=== PATIENT | male | born 1985 | race African-American/Black ===

== ENCOUNTER 2019-11-29 08:35 | Emergency (ER) | payer OTHER ==
[~2019-11-29] VITALS: Ht 182.9 cm; Wt 79.4 kg
[2019-11-29] MEDS ORDERED: FLEXERIL PO (09:47)
[2019-11-29] MEDS ORDERED: LIDODERM1 EACH TOP (09:47)
[2019-11-29] MEDS ORDERED: IBUPROFEN 800800 M1 PO (09:47)
[2019-11-29 09:54] VITALS: BP 141/86
== END 2019-11-29 09:54 | disposition home or self-care (01) ==
LOC: M.ERS 08:35
DX: S46.812A Strain of other muscles, fascia and tendons at shoulder and upper arm level, left arm, initial encounter (principal); W18.39XA Other fall on same level, initial encounter; Y93.6A Activity, physical games generally associated with school recess, summer camp and children; Y92.89 Other specified places as the place of occurrence of the external cause; Y99.8 Other external cause status

== ENCOUNTER 2020-12-30 14:31 | Emergency (ER) | payer OTHER ==
[~2020-12-30] VITALS: Ht 182.9 cm; Wt 84.8 kg
[~2020-12-30 14:31] MED LIST: FLEXERIL PO; IBUPROFEN 800800 M1 PO; LIDODERM1 EACH TOP
[2020-12-30] MEDS ORDERED: FLEXERIL PO (16:01)
[2020-12-30] MEDS ORDERED: LIDODERM1 EACH TOP (16:01)
[2020-12-30 16:05] VITALS: BP 112/87
== END 2020-12-30 16:09 | disposition home or self-care (01) ==
LOC: M.ERS 14:31
DX: M25.512 Pain in left shoulder (principal); M79.642 Pain in left hand; Z79.899 Other long term (current) drug therapy; X50.9XXA Other and unspecified overexertion or strenuous movements or postures, initial encounter; Y93.89 Activity, other specified; Y92.89 Other specified places as the place of occurrence of the external cause; Y99.0 Civilian activity done for income or pay

== ENCOUNTER 2021-02-19 00:26 | Emergency (ER) | payer OTHER ==
[~2021-02-19] VITALS: Ht 182.9 cm; Wt 81.7 kg
[2021-02-19 01:35] LABS: INFLUENZA A ANTIGEN Negative (Negative); INFLUENZA B ANTIGEN Negative (Negative)
[2021-02-19 01:39] LABS: ABSOLUTE BASOPHILS 0.1 thou/uL (0.0-0.2); ABSOLUTE EOSINOPHILS 0.2 thou/uL (0.0-0.7); ABSOLUTE LYMPHOCYTES 0.6 thou/uL (0.8-5.3); ABSOLUTE MONOCYTES 1.6 thou/uL (0.0-1.2); ABSOLUTE NEUTROPHILS 9.4 thou/uL (1.6-8.1); BASOPHILS 0.5 %; CALCIUM 9.3 mg/dL (8.5-10.1); CREATININE 1.5 mg/dL (0.6-1.3); EOSINOPHILS 1.4 %; HEMATOCRIT 42.1 % (42.0-52.0); HEMOGLOBIN 14.5 gm/dL (14.0-18.0); LYMPHOCYTES 5.2 %; MCH 30.5 pg (26.0-34.0); MCHC 34.5 g/dL (28.0-37.0); MCV 88.4 fL (80.0-100.0); MONOCYTES 13.5 %; MPV 10.8 fl. (7.2-11.1); NUCLEATED RBCS 0 /100WBC; PLATELET COUNT* 144 thou/uL (150-400); POLYS 79.4 %; POTASSIUM 3.4 mmol/L (3.5-5.1); RBC 4.76 mil/uL (4.50-6.00); RDW-CV 13.2 % (10.5-14.5); WBC 11.8 thou/uL (4.0-11.0)
[2021-02-19] MEDS ORDERED: ZOFRAN ODT4 MG PO (04:48)
[2021-02-19] MEDS ORDERED: PROAIR HFA8.5 GM INH (04:48)
[2021-02-19 05:18] VITALS: BP 97/59
--- NOTE | 2021-02-19 10:18 | EKG ---
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: [place] : 1985 Requested By: Maribell Santos Order Number: [id number] MD: Jovan Galloway Measurements Intervals [place] Rate: 117 P: 34 OR: 150 QRS: 18 QRSD: 87 T: 76 QT: 310 QTc: 433 Interpretive Statements Sinus tachycardia RSR' in V1 or V2, probably normal variant Borderline T wave abnormalities No previous ECG available for comparison Electronically Signed On 02-19-2021 10:18:40 [employer]ERTY [employer] by Jovan Galloway [email or web address] <ELECTRONICALLY SIGNED> By: Jovan Galloway MD, [facility] 02/19/21 1018 0104 0104 Jovan Galloway MD, [facility] /EPI
[2021-02-20] MEDS ORDERED: IBUPROFEN 800800 M1 PO (17:43)
== END 2021-02-19 05:19 | disposition home or self-care (01) ==
LOC: M.ERS 00:26
PROVIDERS: Emergency Medicine
DX: B34.9 Viral infection, unspecified (principal); Z20.822 Contact with and (suspected) exposure to COVID-19

== ENCOUNTER 2021-02-20 16:59 | Emergency (ER) | payer OTHER ==
[~2021-02-20] VITALS: Ht 182.9 cm; Wt 81.7 kg
[~2021-02-20 16:59] MED LIST changes: +PROAIR HFA8.5 GM INH; +ZOFRAN ODT4 MG PO
[2021-02-20] MEDS ORDERED: IBUPROFEN 800800 M1 PO (17:43)
[2021-02-20 17:46] VITALS: BP 125/69
== END 2021-02-20 17:46 | disposition home or self-care (01) ==
LOC: M.ERS 16:59
DX: U07.1 COVID-19 (principal)